=== PATIENT | female | born 1975 | race Caucasian/White ===

== ENCOUNTER → 2016-10-25 | Outpatient (REF) ==
[~2016-10-25] MED LIST: PRENATAL VITAMI1 TA5 PO
== END ==
LOC: WSOH 16:15
DX: Z02.89 Encounter for other administrative examinations (principal)

== ENCOUNTER → 2018-12-24 | Outpatient (CLI) | payer OTHER ==
[2004-04-13 00:23] VITALS: PULSE 84; TEMP 97.8
== END ==
LOC: MC.RAD 11-17 16:15
DX: Z12.31 Encounter for screening mammogram for malignant neoplasm of breast (principal)

== ENCOUNTER → 2019-12-28 | Outpatient (CLI) | payer BC ==
[2004-04-13 00:23] VITALS: PULSE 84; TEMP 97.8
== END ==
LOC: MC.RAD 16:16
DX: Z12.31 Encounter for screening mammogram for malignant neoplasm of breast (principal)

== ENCOUNTER → 2021-02-06 | Outpatient (CLI) | payer BC ==
[2004-04-13 00:23] VITALS: PULSE 84; TEMP 97.8
== END ==
LOC: MC.RAD 13:20
DX: Z12.31 Encounter for screening mammogram for malignant neoplasm of breast (principal); N64.89 Other specified disorders of breast

== ENCOUNTER → 2021-02-09 | Outpatient (CLI) | payer BC ==
[2004-04-13 00:23] VITALS: PULSE 84; TEMP 97.8
== END ==
LOC: MC.RAD 07:57
DX: N63.10 Unspecified lump in the right breast, unspecified quadrant (principal); N64.89 Other specified disorders of breast

== ENCOUNTER 2023-03-20 09:08 | Day surgery (SDC) | payer BC ==
[~2023-03-20] VITALS: Ht 175.3 cm; Wt 76.5 kg
[~2023-03-20 09:08] MED LIST changes: +LR 1,000 ML IV SCH; +Ondansetron 4 MG/2 ML VIAL IV PRN
[2023-03-20] MEDS ORDERED: fentaNYL 50 MCG/ML 2 ML VIAL ONE (09:15)
[2023-03-20] MEDS ORDERED: Lidocaine PF 2% (20 MG/ML) 5 ML VIAL ONE (09:15)
[2023-03-20] MEDS ORDERED: MULTI VITAMINS1 TAB PO (09:33)
[2023-03-20 11:10] VITALS: BP 130/86; PULSE 80; TEMP 97.6
[2023-03-20 11:25] VITALS: BP 129/90; PULSE 80
[2023-03-20 11:40] VITALS: BP 124/87; PULSE 62
[2023-03-20 11:47] VITALS: BP 131/95; PULSE 69; TEMP 97.8
--- NOTE | 2023-03-20 12:05 | NUR ---
1110 RETURNS TO ROOM 5 PER CART. AWAKE, ALERT. RESP UNLABORED. AMBULATES TO RECLINER WITH STANDBY ASSIST. DENIES NAUSEA OR ABD PAIN. VITAL SIGNS OBTAINED. CALL LIGHT AT SIDE. IN ROOM 1125 TOLERATES PO WATER AND JELLO WITHOUT NAUSEA 1140 DISCHARGE INSTRUCTIONS REVIEWED. PATIENT VERBALIZES UNDERSTANDING. COPY PROVIDED IN DISCHARGE FOLDER 1150 DR[address] AWAIT[address] Mark JONES HERE TO VISIT WITH PATIENT
== END 2023-03-20 12:08 | disposition home or self-care (01) ==
LOC: SDCO 09:08
DX: Z12.11 Encounter for screening for malignant neoplasm of colon (principal); D12.8 Benign neoplasm of rectum
CPT/HCPCS: J2704; J3010; J7120

== ENCOUNTER → 2023-04-11 | Outpatient (CLI) | payer BC ==
[2004-04-13 00:23] VITALS: TEMP 97.8
[~2023-04-11] MED LIST changes: -LR 1,000 ML IV SCH; +MULTI VITAMINS1 TAB PO; -Ondansetron 4 MG/2 ML VIAL IV PRN
== END ==
LOC: MC.RAD 13:00
DX: Z12.31 Encounter for screening mammogram for malignant neoplasm of breast (principal); N63.22 Unspecified lump in the left breast, upper inner quadrant

== ENCOUNTER → 2023-04-17 | Outpatient (CLI) | payer BC ==
[2004-04-13 00:23] VITALS: TEMP 97.8
== END ==
LOC: MC.RAD 09:01
DX: N63.25 Unspecified lump in the left breast, overlapping quadrants (principal)

== ENCOUNTER → 2023-04-18 | Outpatient (CLI) | payer BC ==
[2004-04-13 00:23] VITALS: BP 133/80; PULSE 84; TEMP 97.8
== END ==
LOC: MC.RAD 13:39
DX: N63.25 Unspecified lump in the left breast, overlapping quadrants (principal)